=== PATIENT | female | born 1960 | race Caucasian/White ===

== ENCOUNTER 2021-10-02 12:08 | Emergency (ER) | payer BC, SELFPAY ==
[2021-10-02 12:28] VITALS: BP 116/78; PULSE 67; RESP 16; TEMP 36; O2SAT 97
--- NOTE | 2021-10-02 13:37 | W.ED.GENAD ---
Discharge Plan Disposition Patient Disposition: HOME Condition: Stable Discharge Details Clinical Impression: Martines's palsy Primary Care Provider: Pricilla Coon ED Provider: Calvin Dumont Home Meds and New Rx's Prescriptions: New prednisone 20 mg tablet 60 mg PO DAILY 5 Days Qty: 15 0RF valacyclovir 1 gram tablet 1,000 mg PO TID 7 Days Qty: 21 0RF doxycycline hyclate 100 mg capsule 100 mg PO BID 14 Days Qty: 28 0RF Continued multivitamin [Once Daily] 1 EACH tablet 1 tab PO DAILY cholecalciferol (vitamin D3) [Vitamin D3] 1,000 UNIT capsule 1 cap PO DAILY magnesium 200 MG tablet 1 tab PO DAILY Ocuvite with Lutein 1 TAB tablet 1 tab PO DAILY Biotin 5,000 MCG Tab.Subl 1 tab PO DAILY Cbd 1 cap PO HS cyanocobalamin-liver extract Tablet 1 tab PO DAILY Rx Instructions: unsure of dose clindamycin HCl 150 mg Capsule PO PRN PRN Rx Instructions: unsure of dose Discharge Instructions Instructions: Martines Palsy (ED) Additional Instructions: If you have any new or worsening symptoms you should return immediately to the emergency department for reassessment. Otherwise take medication as prescribed and we will contact you once we receive your tick and Lyme testing. Please be aware that the initial testing may be negative but it will be beneficial to continue and complete all antivirals and antibiotics. You have been placed on a follow-up list with [facility] internal medicine and please call their office tomorrow for arrangement of follow-up appointment and also to have your medical records transferred there. Referrals: [facility] [Provider Group] - 1 week Discharge Data Discharge Date/Time-TO BE ENTERED AT DEPARTURE: 10/02/21 14:16 Medical Decision Making Patient presenting to the emergency department for facial droop and eye irritation for the last 4 days. Patient was seen and the walk-in clinic and also saw community health coordinator today with suspicion of Martines's palsy. Physical exam is consistent with Martines's palsy to the right side of her face with forehead involvement. Exam is otherwise unremarkable and patient has no other neurological complaints or findings on exam. We will plan to start patient on steroids, antivirals, and antibiotics given that she has animals that have been in and out of the house and do occasionally have ticks. We will send tick and Lyme panel and plan to check CBC and CMP for any subtle findings that would indicate causation of Martines's palsy. Return and follow-up precautions were discussed. Patient does state that she does not have a primary care provider anymore due to prison and was requesting a local primary care provider. Did have patient placed upon care management list for arrangement of PCP. After discussion of diagnosis and plan of care patient has no further needs, questions, or concerns and states clear understanding to return to the emergency department for any worsening symptoms. HPI General Mode of arrival: ambulatory. Date/Time Provider Initiated Documentation: 10/02/21 12:49. Limitations to Documentation: no limitations. Information obtained by: patient and RN notes reviewed. History of Present Illness 61 year old F presents to the emergency department with the chief complaint of right sided facial droop, Quality is described as other (Denies pain or discomfort), and is localized to the face and right. Patient started experiencing this day(s) (4) and it has been constant. No relieving factors improve symptom(s), No exacerbating factors reported . Patient notes no other symptoms.. Patient did receive the following treatments prior to arrival, none Related Data Home Medications Medication Instructions Recorded Confirmed Biotin 1 tab PO DAILY 10/03/17 10/02/21 Cbd 1 cap PO HS 10/03/17 10/02/21 cholecalciferol (vitamin D3) 25 1 cap PO DAILY 10/03/17 10/02/21 mcg (1,000 unit) capsule (Vitamin D3) magnesium 200 mg tablet 1 tab PO DAILY 10/03/17 10/02/21 multivitamin (Once Daily tablet) 1 tab PO DAILY 10/03/17 10/02/21 vit A 300 mcg-C 200 mg-E 27 1 tab PO DAILY 10/03/17 10/02/21 mg-lutein 2 mg and minerals tablet (Ocuvite with Lutein) clindamycin HCl 150 mg capsule mg PO PRN PRN 10/02/21 cyanocobalamin-liver extract tablet 1 tab PO DAILY 10/02/21 10/02/21 doxycycline hyclate 100 mg capsule 100 mg PO BID 2 weeks #28 caps 10/02/21 prednisone 20 mg tablet 60 mg PO DAILY 5 days #15 tabs 10/02/21 valacyclovir 1 gram tablet 1,000 mg PO TID 1 week #21 tabs 10/02/21 Previous Rx's Medication Instructions Recorded doxycycline hyclate 100 mg capsule 100 mg PO BID 2 weeks #28 caps 10/02/21 prednisone 20 mg tablet 60 mg PO DAILY 5 days #15 tabs 10/02/21 valacyclovir 1 gram tablet 1,000 mg PO TID 1 week #21 tabs 10/02/21 Allergies Allergy/AdvReac Type Severity Reaction Status Date / Time azithromycin [From Zithromax] Allergy Severe Anaphylaxsi Unverified 10/02/21 12:45 s amoxicillin Allergy Intermediate Skin Rash Unverified 10/02/21 12:45 Penicillins Allergy Intermediate Skin Rash Unverified 10/02/21 12:45 General Stated Complaint: CVA/TIA COLT: 3 Review of Systems Constitutional Constitutional: Denies body ache(s), Denies chills, Denies fever(s), Denies headache(s) and Denies malaise Eyes Eyes: Reports blurry vision (Due to dry eyes), Denies change in vision, Reports dry eyes, Denies loss of vision and Reports photophobia ENT Ears, Nose, Mouth, and Throat: Denies dizziness, Denies headache(s) and Denies disequilibrium Cardiovascular Cardiovascular: Denies chest pain and Denies syncope Gastrointestinal Gastrointestinal: Reports nausea and Reports vomiting Neurologic Neurologic: Reports as per HPI, Denies abnormal speech, Denies dizziness, Denies syncope, Denies headache(s), Denies lack of coordination, Denies localized weakness, Denies loss of vision, Denies other visual disturbances, Denies sensory deficit, Denies paresthesias and Denies disequilibrium PFSH All Active Problems (Updated 10/05/21 @ 16:30 by Calvin Dumont NP) Amy-Danlos syndrome (Acute) Martines's palsy (Acute) Social History Smoking/Tobacco Use Status: Never Smoking risk assessment performed?: Yes Substance use type: does not use Do you feel safe at home: Yes Do you feel safe in your relationship?: Yes Exam Const General: cooperative, healthy appearing, no acute distress and well groomed Orientation: alert, awake and oriented x3 HENMT Head: normal to inspection Ears: hearing grossly normal bilaterally and TM's normal bilaterally Mouth: oral mucosae normal and moist mucous membranes Throat: posterior oropharynx normal Eyes Visual [place]: normal visual [place] by confrontation Alignment and Position: alignment normal Periorbital: periorbital findings normal Eyelids: eyelid abnormality right upper eyelid and right lower eyelid Sclera: sclerae normal Cornea: corneas normal Pupils: PERRL EOM: EOM intact bilaterally Neck Neck: normal visual inspection, full ROM, no lymphadenopathy and no meningeal signs Resp Effort & Inspection: normal respiratory effort and able to speak in complete sentences Auscultation: clear to auscultation bilaterally Cardio Rate: regular rate Rhythm: regular rhythm Heart Sounds: S1 normal and S2 normal Neuro General: patient alert, patient awake, patient oriented x3, gait normal, tone normal, moves all extremities and not confused Cranial Nerves: PERRL, EOM intact bilaterally, no nystagmus, tongue midline, gag reflex normal, hearing normal, able to rotate head bilaterally, able to elevate shoulders bilaterally and individual cranial nerve findings VII: abnormal (Paralysis with intact sensation) Cognition: normal cognition Speech: speech normal Motor: muscle tone normal throughout, strength 5/5 throughout, no pronator drift, no movement abnormalities noted and no fasciculations Sensory Exam: no sensory deficits noted Coordination: [id number] test normal, Romberg test normal, Does not sway with eyes open, rapid alternating movement UE normal and rapid alternating movement LE normal Course Vital Signs Vital signs: Vital Signs Temperature 36 C L 10/02/21 12:28 Pulse 67 10/02/21 12:28 Respiratory Rate 16 10/02/21 12:28 Blood Pressure 116/78 10/02/21 12:28 Pulse Oximetry 97 10/02/21 12:28 Temperature 36 C L 10/02/21 12:28 Temperature Source Skin 10/02/21 12:28 Pulse 67 10/02/21 12:28 Respiratory Rate 16 10/02/21 12:28 Blood Pressure 116/78 10/02/21 12:28 Blood Pressure Position Sitting 10/02/21 12:28 Pulse Oximetry 97 10/02/21 12:28 Oxygen Delivery Method Room Air 10/02/21 12:28 Oxygen Flow Rate 0 10/02/21 12:28 Pain Level 0 10/02/21 12:28
[2021-10-02 13:45] VITALS: RESP 16
--- NOTE | 2021-10-02 13:59 | NUR.NOTE ---
Nursing Note: Referral given to Care Management needs PCP, establish care, [place] Palsy, within 1 week. Lillian Roger
[2021-10-02 14:17] VITALS: PULSE 88; RESP 16; O2SAT 99
[2021-10-02 14:20] LABS: Abs Immature Grans 0.02 10^3/uL (0.0-0.06); Absolute Basophil Count 0.04 10^3/uL (0.0-0.2); Absolute Eosinophil Count 0.16 10^3/uL (0.0-0.7); Absolute Lymphocyte Count 2.34 10^3/uL (1.2-3.4); Absolute Monocyte Count 0.63 10^3/uL (0.1-0.8); Absolute Neutrophil Count 4.19 10^3/uL (1.2-6.7); Basophils % 0.5; Eosinophils % 2.2; HCT 46.5 % (36.0-46.0); Immature Grans % 0.3; Lymphocytes % 31.7; MCHC 32.3 % (32.0-36.0); MCV 90 fL (80-95); MPV 9.9 fL (8.0-11.0); Monocytes % 8.5; Neutrophils % 56.8; Platelet Count 251 10^3/uL (130-400); RBC 5.18 10^6/uL (3.93-5.22); RDW 13.8 % (11.7-14.6); RDW-SD 45.8 fL; WBC 7.38 10^3/uL (4.4-10.8)
--- NOTE | 2021-10-02 14:20 | NUR.NOTE ---
Nursing Note: pt with mild right side face drop - no weakness in arms. 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 no leg weakness. no difficulty standing or walking. No confusion, no speech impairment. Per ORE CRUSHING DUST COLLECTOR Jaiden, pt is not at high risk for CVA and presents with [place] Palsy.
[2021-10-02 14:36] LABS: ALT 29 U/L (14-59); AST 14 U/L (15-37); Albumin 4.2 g/dL (3.4-5.0); Alkaline Phosphatase 113 U/L (46-116); Anion Gap 8.6 mmol/L (3-11); BUN 12 mg/dL (7-18); Bilirubin, Total 0.5 mg/dL (0.2-1.0); CO2 27.4 mmol/L (21.0-32.0); CREATININE 0.8 mg/dL (0.55-1.02); Calcium 9.5 mg/dL (8.5-10.1); Chloride 106 mmol/L (98-107); Glucose 90 mg/dL (74-106); Potassium 3.9 mmol/L (3.5-5.1); Sodium 142 mmol/L (136-145); Total Protein 7.6 g/dL (6.4-8.2)
[2021-10-03 11:23] LABS: Lyme Ab w Rflx to Lyme Confirm Negative (Negative)
[2021-10-04 05:30] LABS: Anaplasma phagocytophilum Negative (Negative); B. miyamotoi PCR Negative (Negative); Babesia divergens/MO-1 Negative (Negative); Babesia duncani Negative (Negative); Babesia microti Negative (Negative); Ehrlichia chaffeensis Negative (Negative); Ehrlichia ewingii/canis Negative (Negative); Ehrlichia muris eauclairensis Negative (Negative)
--- NOTE | 2021-10-10 09:45 | NUR.NOTE ---
Nursing Note: Accessed patient chart for results of tick and lyme panel. Per Dr Mane the results of all 7 tests were negative. Patient was called back and given the results. Lillian Roger
== END 2021-10-02 14:16 | disposition home or self-care (01) ==
PROVIDERS: Emergency Provider Nurse Practitioner Family; PCP Internal Medicine
DX: G51.0 Bell's palsy (principal)
CPT/HCPCS: 36415; 80053; 87798; 99283; 85025; 86618

== ENCOUNTER 2022-01-25 18:03 | Outpatient (REF) | payer BC, SELFPAY ==
[2022-01-25 15:54] LABS: HCT 43.1 % (36.0-46.0); HGB 14.2 g/dL (11.2-15.7); MCH 28.9 pg (27.0-33.0); MCHC 32.9 % (32.0-36.0); MCV 88 fL (80-95); MPV 10.3 fL (8.0-11.0); Platelet Count 313 10^3/uL (130-400); RBC 4.91 10^6/uL (3.93-5.22); RDW 13.5 % (11.7-14.6); WBC 6.57 10^3/uL (4.4-10.8)
[2022-01-25 16:48] LABS: ALT 34 U/L (14-59); AST 17 U/L (15-37); Albumin 3.8 g/dL (3.4-5.0); Alkaline Phosphatase 104 U/L (46-116); Anion Gap 8.6 mmol/L (3-11); BUN 11 mg/dL (7-18); Bilirubin, Total 0.4 mg/dL (0.2-1.0); CO2 28.4 mmol/L (21.0-32.0); CREATININE 0.8 mg/dL (0.55-1.02); Calcium 9.3 mg/dL (8.5-10.1); Calculated LDL 183 mg/dL (<100); Chloride 105 mmol/L (98-107); Cholesterol 265 mg/dL (<200); Glucose 99 mg/dL (74-106); HDL Cholesterol 60 mg/dL (40-60); Potassium 4.6 mmol/L (3.5-5.1); Sodium 142 mmol/L (136-145); TSH (W/Ref FT4) 3.32 uIU/mL (0.36-3.74); Total Protein 6.8 g/dL (6.4-8.2); Triglyceride 112 mg/dL (<150)
== END 2022-01-25 18:04 | disposition home or self-care (01) ==
LOC: NCHCN 18:03
PROVIDERS: PCP Internal Medicine; Visit Provider Nurse Practitioner Family
DX: Z00.00 Encounter for general adult medical examination without abnormal findings (principal); E78.5 Hyperlipidemia, unspecified; R68.83 Chills (without fever); R53.83 Other fatigue
CPT/HCPCS: 80053; 80061; 85027; 84443

== ENCOUNTER 2022-08-10 17:38 | Emergency (ER) | payer BC, SELFPAY ==
[2022-08-10 17:42] VITALS: BP 147/78; PULSE 75; RESP 18; TEMP 36.3; O2SAT 100
--- NOTE | 2022-08-10 17:45 | DI.RAD_ITS ---
Exam(s) XR TIB/FIB LT EXAM: XR TIB/FIB LT CLINICAL HISTORY: distal fibular pain. TECHNIQUE: 2D digital imaging was performed. COMPARISON: No exams were available for comparison FINDINGS: Two views: No evidence of acute fracture. No radiopaque foreign body. Mild soft tissue swelling. There is a left knee prosthesis which appears to be in satisfactory position. No obvious loosening. IMPRESSION: There is soft tissue swelling in the lower leg region. No acute osseous findings. Left knee prosthe sis noted. DATA REPOSITORY: RADIATION DOSE DELIVERED:
--- NOTE | 2022-08-10 17:46 | W.ED.GENAD ---
Discharge Plan Disposition Patient Disposition: Home Condition: Good Discharge Details Clinical Impression: Lower extremity pain, lateral Primary Care Provider: Lucy Davey ED Provider: Jean Carlos Martinez Home Meds and New Rx's Prescriptions: Continued multivitamin [Once Daily] 1 EACH tablet 1 tab PO DAILY cholecalciferol (vitamin D3) [Vitamin D3] 1,000 UNIT capsule 1 cap PO DAILY magnesium 200 MG tablet 1 tab PO DAILY Ocuvite with Lutein 1 TAB tablet 1 tab PO DAILY Biotin 5,000 MCG Tab.Subl 1 tab PO DAILY Cbd 1 cap PO HS cyanocobalamin-liver extract Tablet 1 tab PO DAILY Rx Instructions: unsure of dose clindamycin HCl 150 mg Capsule PO PRN PRN Rx Instructions: unsure of dose Discharge Instructions Additional Instructions: You were seen for left lateral lower extremity pain with an associated lump. You are tender in this area and it moves with flexion and extension of your ankle suggesting related to the tendons. You do not have calf tenderness or generalized leg pain or swelling and this is unlikely to be blood clot related. Would take ibuprofen 600 mg 3 times a day with food, keep the leg elevated as much as possible, ice on and off over the weekend. Follow-up with primary care next week if not improving. Return to the ED for fever, chest pain, shortness of breath, worsening/increasing pain, redness, other concerns. Medical Decision Making Patient presenting with left lower lateral leg pain with nodular-like mass appreciated. It is mildly tender. It is mobile and moves beneath my fingers with flexion and extension of her ankle. Suspect tendon related inflammation. She has no calf tenderness nor asymmetric swelling. Pulses are intact. I do not suspect this to be related to DVT as it is fairly focal and localized. Patient given ibuprofen. X-ray of tib-fib obtained just to be sure of no bony abnormality. Per my read and preliminary radiology read tib-fib films are unremarkable. No acute fracture/dislocation or osseous abnormality. 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 Have her use ibuprofen 3 times a day over the weekend. Ice on and off. Follow-up with primary care next week if it is not improving. Return precautions provided. HPI General Mode of arrival: ambulatory. Date/Time Provider Initiated Documentation: 08/10/22 17:46. Limitations to Documentation: no limitations. Information obtained by: patient. HPI Narrative: Patient presents to ED with left lateral pain just above her ankle. She denies any injury. She describes the pain as throbbing. She feels a small lump in the area. She denies any fever, chest pain, shortness of breath, leg swelling. Pain is pretty much localized to that one area. No prior history of DVT or clots. 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 Related Data Home Medications Medication Instructions Recorded Confirmed Biotin 1 tab PO DAILY 10/03/17 08/10/22 Cbd 1 cap PO HS 10/03/17 08/10/22 cholecalciferol (vitamin D3) 25 1 cap PO DAILY 10/03/17 08/10/22 mcg (1,000 unit) capsule (Vitamin D3) magnesium 200 mg tablet 1 tab PO DAILY 10/03/17 08/10/22 multivitamin (Once Daily tablet) 1 tab PO DAILY 10/03/17 10/02/21 vit A 300 mcg-C 200 mg-E 27 1 tab PO DAILY 10/03/17 08/10/22 mg-lutein 2 mg and minerals tablet (Ocuvite with Lutein) clindamycin HCl 150 mg capsule mg PO PRN PRN 10/02/21 cyanocobalamin-liver extract tablet 1 tab PO DAILY 10/02/21 10/02/21 Allergies Allergy/AdvReac Type Severity Reaction Status Date / Time azithromycin [From Zithromax] Allergy Severe Anaphylaxsi Unverified 10/02/21 12:45 s amoxicillin Allergy Intermediate Skin Rash Unverified 10/02/21 12:45 Penicillins Allergy Intermediate Skin Rash Unverified 10/02/21 12:45 General Stated Complaint: Vascular COLT: 4 Review of Systems Narrative: per HPI PFSH All Active Problems (Updated 08/10/22 @ 19:13 by Jean Carlos Martinez MD) Lower extremity pain, lateral (Acute) Chronic left hip pain (Acute) Morbid obesity (Acute) Chills (without fever) (Acute) Fatigue (Acute) Medical History Alopecia areata Amy-Danlos syndrome Hyperlipidemia Lichen sclerosus et atrophicus Melanoma Migraine YAZAN (obstructive sleep apnea) Osteoarthritis of hips, bilateral Surgical History History of total knee replacement Social History Smoking/Tobacco Use Status: Never Smoking risk assessment performed?: Yes Substance use type: does not use Do you feel safe at home: Yes Do you feel safe in your relationship?: Yes Exam Narrative Exam Narrative: Const: Obese female in NAD. HEENT: NC/AT. Normal facial exam. Eyes: Normal conjunctiva and sclera. Neck: Supple. Trachea midline. Lungs: Normal respiratory effort. Cor: RRR. Good DP/PT pulses. Neuro: A+O x 3. Normal speech, mentation, gait. Cranial nerves II - XII grossly intact. No gross motor or sensory deficit. Ext: No C/C/E. No calf tenderness. Focal tenderness with palpable nodule like mass just above and behind the lateral malleolus. This moves with flexion and extension at the ankle and feels related to a tendon. Pain is made worse by flexion/extension Skin: Warm and dry without erythema. Course Vital Signs Vital signs: Vital Signs Temperature 97.4 F L 08/10/22 17:42 Pulse 75 08/10/22 17:42 Respiratory Rate 18 08/10/22 17:42 Blood Pressure 147/78 H 08/10/22 17:42 Pulse Oximetry 100 08/10/22 17:42 Temperature 97.4 F L 08/10/22 17:42 Temperature Source Tympanic 08/10/22 17:42 Pulse 75 08/10/22 17:42 Respiratory Rate 18 08/10/22 17:42 Respiratory Effort Normal 08/10/22 17:44 Blood Pressure 147/78 H 08/10/22 17:42 Pulse Oximetry 100 08/10/22 17:42 Pain Level 6 08/10/22 17:42 PAWSS Have you Been Recently Intoxicated or Drunk Within the Last 30 days?: No Have you Ever Experienced Previous Episodes of Alcohol Withdrawal?: No Have you ever Experienced Withdrawal Seizures?: No Have you ever Experienced Delirium Tremens(DT)s?: No Have you ever undergone Alcohol Rehabilitation Treatment (i.e, inpt ot outpatient treatment programs)?: No Have you ever Experienced Blackouts?: No Have you ever Combined Alcohol with other Downers within the last 90 days?: No Have you ever Combined Alcohol with any other Substance of Abuse during the last 90 days?: No Result: 0
[2022-08-10] MEDS: Ibuprofen 600 MG TAB PO (18:07)
--- NOTE | 2022-08-10 18:57 | DI.VRAD_ITS ---
PROCEDURE INFORMATION: Exam: XR Left Tibia and Fibula Exam date and time: 08/10/2022 6:42 PM Age: 61 years old Clinical indication: Pain; Lower leg; Bilateral; Prior surgery; Surgery date: 6+ months; Surgery type: Tka; Additional info: Pain no injury TECHNIQUE: Imaging protocol: Radiologic exam of the left tibia and fibula. Views: 2 views. COMPARISON: No relevant prior studies available. FINDINGS: Bones/joints: Left knee prosthesis is in place. Osseous alignment is normal. No acute fracture. Soft tissues: Soft tissue swelling of the left lower leg noted IMPRESSION: Soft tissue swelling of the left lower leg. Left knee prosthesis No significant osseous abnormality. Dictated and Authenticated by: Talib Martinez MD. Ordering:CORRINA Evangelista MD
[2022-08-10 19:39] VITALS: BP 118/83; PULSE 53; RESP 16; TEMP 36.4; O2SAT 99
== END 2022-08-10 19:41 | disposition home or self-care (01) ==
PROVIDERS: Emergency Provider Emergency Medicine; PCP Nurse Practitioner Family
DX: M79.662 Pain in left lower leg (principal)
CPT/HCPCS: 99283; 73590

== ENCOUNTER 2022-09-27 06:55 | Day surgery (SDC) | payer BC, SELFPAY ==
--- NOTE | 2022-09-26 19:35 | W.PM.DSUDISC ---
Date of service: 09/27/22 Time of Service: 08:41 Discharge Plan Disposition Patient Disposition: Home Condition: Good Discharge Details Reason For Visit: Screening colonoscopy Attending Provider: Jase Santillan Primary Care Provider: Lucy Davey Home Meds and New Rx's Prescriptions: Continued multivitamin [Once Daily] 1 EACH tablet 1 tab PO DAILY cholecalciferol (vitamin D3) [Vitamin D3] 1,000 UNIT capsule 1 cap PO DAILY magnesium 200 MG tablet 1 tab PO DAILY Ocuvite with Lutein 1 TAB tablet 1 tab PO DAILY Biotin 5,000 MCG Tab.Subl 1 tab PO DAILY Cbd 1 cap PO HS cyanocobalamin-liver extract Tablet 1 tab PO DAILY Rx Instructions: unsure of dose Discontinued polyethylene glycol 3350 17 gram/dose powder 238 g PO ONCE Qty: 238 0RF Rx Instructions: take per colonoscopy instructions bisacodyl [Dulcolax (bisacodyl)] 5 mg tablet,delayed release (DR/EC) 5 mg PO ONCE Qty: 4 0RF Rx Instructions: take per colonoscopy instructions No Action estradiol 1 mg/gram (0.1 %) Gel In Packet 1 packet topical DIRECTED Discharge Instructions Instructions: Diverticulosis Diet (GEN), Diverticulosis (GEN) Additional Instructions: Janis, we were able to complete your colonoscopy today without any difficulty. You have some sigmoid diverticulosis. These are weak spots in the wall of the large intestine. Seen in some patients they can cause pain usually on the left lower side, sometimes across the lower portion of the abdomen. This is known as diverticulitis, and is often times treated with antibiotics. In many patients, the diverticulosis is asymptomatic. I have attached some information here regarding general treatment of diverticular disease. Otherwise, I did not see any signs of polyps or tumors. Based on your family history, you should consider screening colonoscopies every 5 years to reduce your chances of colon cancer. 1. If tolerated, consume a soft, low fiber diet for 1-2 days. [address] Do not drive, drink alcohol, operate machinery, make critical decisions, or do activities that require coordination or balance for 24 hours. 3. Because air was put into your colon during the procedure, expelling air from your rectum (passing gas or farting) is normal. 4. You may not have a bowel movement for 1-3 days because of the colonoscopy prep. This is normal. 5. Go directly to the emergency room if you notice any of the following: Develop chills (warm to touch), or if you have a thermometer and your temperature is above 101 Difficulty breathing or difficultly swallowing Persistent vomiting Severe abdominal pain, other than gas cramps Severe chest pain Black, tarry stools Any bleeding ? exceeding one tablespoon 6. Call your physician if the site where your intravenous was started becomes red, swollen, painful, and warm to touch. 7. Your physician has reviewed your pre-procedure medications. Please continue to take those medications as previously ordered. You will be given specific information/education regarding any changes to your medications before leaving. Activity:: Activity as Tolerated Diet:: As Tolerated Discharge Orders Discharge Orders: Discharge Order (Routine); Ordered 09/26/22 Ordered By: Jase Santillan DS: Diagnosis Discharge Diagnosis (1) Screen for colon cancer: Status: Acute Asessment and Plan: Negative screening colonoscopy; based on family history of multiple second-degree relatives with colon cancer, she should undergo screening colonoscopy every 5 years
--- NOTE | 2022-09-26 19:36 | W.COLOREPORT ---
Date of service: 09/27/22 Time of Service: 08:38 Colonoscopy Report Date of procedure: 09/27/22 Pre-op diagnosis general: Screening colonoscopy Post-op diagnosis procedure note: other (Diverticulosis) Procedure: Colonoscopy Surgeon: Jase Santillan Anesthesia Type: General:No Airway Estimated blood loss (mL): 0 Pathology: none sent Complications: None Disposition: same day Indications: Janis is 62 years old and she is undergoing her second screening colonoscopy. She has a newly discovered family history of multiple second-degree relatives with colon cancer. Therefore, she should consider screening colonoscopy every 5 years. Prep: Miralax/Dulcolax Procedure Start Time: 08:12 Procedure End Time: 08:29 Retraction Time: 10 Findings: Sigmoid diverticulosis Procedure Description: After the induction of monitored anesthetic care, and with the patient in left lateral decubitus position, I began by performing an external anorectal exam.? Perineum and skin were normal, as was the anal verge.? There is an external hemorrhoid.? Next, I performed a digital rectal exam.? I did not appreciate any abnormal findings.? Next, I advanced a colonoscope into the rectal vault.? I performed retroflexion.? This was normal.? Using insufflation, I then advanced the colonoscope beyond the rectal folds and into the sigmoid colon before advancing towards the cecum.? The quality of the prep was outstanding.? The scope was noted to be in the cecum by identification of the ileocecal valve and appendiceal orifice.? I then began withdrawing the colonoscope using repeated irrigation as necessary for full evaluation of the colonic mucosa. There is some sigmoid diverticulosis. ?Once the scope was withdrawn to the level of the rectum, great care was taken to examine portions of the rectal folds.? Finally, the scope was withdrawn and the patient was brought to the same-day surgery recovery unit as the anesthetic wore off. ?The findings and instructions were shared with the patient prior to discharge.
[2022-09-27 07:15] VITALS: BP 124/82; PULSE 67; RESP 16; TEMP 36.2; O2SAT 98
--- NOTE | 2022-09-27 07:36 | W.ANESPRE ---
General Info Date of Service Date Performed: 09/27/22 Height: 5 ft 7 in Weight: 131.8 kg Body Mass Index (BMI): 45.5 Surgical Procedure: Operation Date: 09/27/22 08:20 Proposed Procedure Side Surgeon fuentes Santillan MD Meds Allergies and Home Medications Allergies Allergy/AdvReac Type Severity Reaction Status Date / Time azithromycin [From Zithromax] Allergy Severe Anaphylaxsi Unverified 09/27/22 07:12 s amoxicillin Allergy Intermediate Skin Rash Unverified 09/27/22 07:12 Penicillins Allergy Intermediate Skin Rash Unverified 09/27/22 07:12 Home Medication Medication Instructions Recorded Biotin 1 tab PO DAILY 10/03/17 Cbd 1 cap PO HS 10/03/17 cholecalciferol (vitamin D3) 25 1 cap PO DAILY 10/03/17 mcg (1,000 unit) capsule (Vitamin D3) magnesium 200 mg tablet 1 tab PO DAILY 10/03/17 multivitamin (Once Daily tablet) 1 tab PO DAILY 10/03/17 vit A 300 mcg-C 200 mg-E 27 1 tab PO DAILY 10/03/17 mg-lutein 2 mg and minerals tablet (Ocuvite with Lutein) cyanocobalamin-liver extract tablet 1 tab PO DAILY 10/02/21 estradiol 1 mg/gram (0.1 %) 1 packet topical DIRECTED 09/27/22 transdermal gel packet Current Visit Medications: Current Medications Generic Name Dose Route Start Last Admin Trade Name Freq PRN Reason Stop Dose Admin Hyoscyamine Sulfate 0.125 mg 09/26/22 19:38 Hyoscyamine 0.125 Mg Sl/Oral/Chew SL 10/26/22 19:37 DIRECTED PRN Ringer's Solution 1,000 mls @ 80 mls/hr 09/27/22 06:00 IV 10/26/22 23:59 INF[facility]ION [facility] IV Miscellaneous Supplies 1 each 09/27/22 06:00 Iv Access IV 10/26/22 23:59 DIRECTED [facility] Ondansetron HCl 4 mg 09/26/22 19:38 Ondansetron 4 Mg/2 Ml Vial IVP 10/26/22 19:37 Q4H PRN PRN Nausea / Vomiting Sodium Chloride 0 ml 09/27/22 06:00 Normal Saline Flush 10 Ml Syr IV 10/26/22 23:59 PRN PRN Sodium Chloride 0 ml 09/27/22 06:00 Normal Saline 10 Ml Vial IJ 10/26/22 23:59 DIRECTED PRN Sterile Water 0 ml 09/27/22 06:00 Water,Injection,Sterile 10 Ml Vial IJ 10/26/22 23:59 DIRECTED PRN PFSH Active Problems Active Problems: Problem Status Onset Code Fatigue R53.83 Chills (without fever) R68.83 Morbid obesity E66.01 Chronic left hip pain M25.552, G89.29 Screen for colon cancer Z12.11 Medical History Medical History (Updated 09/27/22 @ 07:30 by Janet Rg RN) Alopecia areata Amy-Danlos syndrome Hyperlipidemia Lichen sclerosus et atrophicus Melanoma 7 lymph nodes removed at same time as melanoma Migraine YAZAN (obstructive sleep apnea) Osteoarthritis of hips, bilateral Medical History Comments:: Per pt. states she doesnt need as much general anesthesia, states it take her a long time to come out of it Surgical History Surgical History (Updated 09/27/22 @ 07:31 by Janet Rg RN) H/O lymph node excision L side, armpit-traced with barium History of total knee replacement Bilateral Hx of tubal ligation Tobacco Smoking/Tobacco Use Status: Never Alcohol Alcohol Intake: current Alcohol intake frequency: 0-2 drinks per day Substance Use Substance use type: does not use Details: alcohol t-2, one hard kombucha Vital Signs and Lab Results Vital Signs Most Recent Vital Signs in EMR: Most Recent Vital Signs Temp Pulse Resp BP Pulse Ox 36.2 C L 67 16 124/82 98 09/27/22 07:15 09/27/22 07:15 09/27/22 07:15 09/27/22 07:15 09/27/22 07:15 Lab Results Blood Type / Crossmatch: No Data to Display Complete Blood Count: No Data to Display Complete Metabolic Panel: No Data to Display Liver Function Panel: No Data to Display Coagulation Panel: No Data to Display Cardiac Panel: No Data to Display Arterial Blood Gas: No Data to Display Venous Blood Gas: No Data to Display Pancreas Panel: No Data to Display Thyroid Panel: No Data to Display Infectious Disease: No Data to Display Blood Cultures: No Data to Display Toxicology Panel: No Data to Display Anesthesia Assessment and Plan Anesthesia History Personal History: No History of Anesthesia Complications and Delayed Emergence Family History: No Family History of Anesthesia Complications Exercise Tolerance Exercise Tolerance: Metabolic Equivalents>4 Pertinent Negatives Pertinent Negatives: No Symptoms of GERD Cardiac & Pulmonary Exam Cardiac Exam: Normal S1/S2 Heart Sounds Pulmonary Exam: Clear Bilateral Breath Sounds Implantable Cardiac Device Does patient have a Pacemaker or an ICD?: No Airway Exam Known Difficult Airway: No Mallampati Class: 3 Mouth Opening: Normal (> 3cm) Thyromental Distance: Greater than 3 cm Neck Range of Motion: Full ROM Neck Circumference: Normal Teeth Condition: Normal Dentition ASA Classification ASA Score: ASA 2 Emergency Case?: No NPO Status NPO Status: NPO Clears >2 hours, Solids >8 hours Anesthesia Plan Resuscitation Status: Full Code Anesthesia Technique: MAC Anesthesia Airway Planned: Natural Airway Monitors Used: Standard Monitors
[2022-09-27 07:37] VITALS: BMI 45.5
[2022-09-27] MEDS: Lactated Ringers 1,000 ML 80 ML IV (07:46)
[2022-09-27 08:33] VITALS: BP 112/65; PULSE 66; RESP 18; TEMP 36.4; O2SAT 95
[2022-09-27 09:00] VITALS: BP 152/85; PULSE 65; RESP 18; TEMP 36.6; O2SAT 98
--- NOTE | 2022-09-27 09:24 | W.ANESPOSTOP ---
Postoperative Evaluation Date, Time and Location Date Performed: 09/27/22 Time Performed: :24 Patient Location: Day Surgery Unit Vital Signs Most Recent Imported Vital Signs: Most Recent Vital Signs Temp Pulse Resp BP Pulse Ox 36.6 C 65 18 152/85 H 98 09/27/22 09:00 09/27/22 09:00 09/27/22 09:00 09/27/22 09:00 09/27/22 09:00 Pain Score Most Recent Pain Score: Most Recent Pain Score Pain Level 0 09/27/22 09:00 Assessment Mental Status: Awake (Alert & Oriented to Patient Baseline) Airway and Respiratory Function: Patent airway with normal (patient baseline) respiratory exam Cardiovascular Function: Hemodynamically Stable Hydration Status: Adequately Hydrated Nausea & Vomiting: No Nausea or Vomiting Pain: Pt. Denies Any Pain Peripheral Nerve Block: Patient did not receive a nerve block
== END 2022-09-27 06:56 | disposition home or self-care (01) ==
PROVIDERS: PCP Nurse Practitioner Family; Visit Provider Surgery
PROC: 0DJD8ZZ Inspection of Lower Intestinal Tract, Via Natural or Artificial Opening Endoscopic (ICD-10-PCS; CPT 45378; principal; 2022-09-27 08:15)
DX: Z12.11 Encounter for screening for malignant neoplasm of colon (principal); Z80.0 Family history of malignant neoplasm of digestive organs; K57.30 Diverticulosis of large intestine without perforation or abscess without bleeding
CPT/HCPCS: 45378

== ENCOUNTER 2023-06-07 14:38 | Outpatient (REF) | payer BC, SELFPAY ==
[2023-06-07 19:46] LABS: Hemoglobin A1C 5.6 % (<5.7)
[2023-06-07 20:05] LABS: ALT 24 U/L (14-59); AST 15 U/L (15-37); Albumin 4.1 g/dL (3.4-5.0); Alkaline Phosphatase 92 U/L (46-116); Anion Gap 7.1 mmol/L (3-11); BUN 11 mg/dL (7-18); Bilirubin, Total 0.6 mg/dL (0.2-1.0); CO2 27.9 mmol/L (21.0-32.0); CREATININE 0.9 mg/dL (0.55-1.02); Calcium 9.3 mg/dL (8.5-10.1); Calculated LDL 170 mg/dL (<100); Chloride 105 mmol/L (98-107); Cholesterol 264 mg/dL (<200); Estimated GFR 72.73 (mL/min/1.73m2); Glucose 109 mg/dL (74-106); HDL Cholesterol 78 mg/dL (40-60); Sodium 140 mmol/L (136-145); TSH (W/Ref FT4) 3.26 uIU/mL (0.36-3.74); Total Protein 7.5 g/dL (6.4-8.2); Triglyceride 81 mg/dL (<150)
[2023-06-10 13:26] LABS: FREE T4 1.06 ng/dL (0.76-1.46)
== END 2023-06-07 14:39 | disposition home or self-care (01) ==
LOC: NCHCN 14:38
PROVIDERS: PCP Nurse Practitioner Family; Visit Provider Nurse Practitioner Family
DX: R53.83 Other fatigue (principal)
CPT/HCPCS: 80053; 80061; 83036; 84439; 84443

== ENCOUNTER → 2023-12-18 01:54 | Outpatient (CLI) | payer BC, SELFPAY ==
--- NOTE | 2023-12-18 | DI.MAMMO_ITS ---
Exam(s) MAMMO SCREENING EXAM: MAMMO SCREENING CLINICAL HISTORY: SCREENING, Z12.31. TECHNIQUE: Bilateral full field digital CC and MLO mammographic images were obtained with 3D tomosyn thesis and utilizing computer aided detection (CAD). COMPARISON: Prior outside mammograms dating back to 2004 were reviewed, most recent being April 13.. FINDINGS: There has been no significant change in the appearance and distribution of the fibroglandular tissue. No new left breast findings. In the right breast there is an asymmetric density evident anteriorly, medial of center and unchanged since 2004. There are no malignant-appearing microcalcification groups in this region nor elsewhere in either miguel ast. There is no significant architectural distortion nor skin thickening-retraction. IMPRESSION: No radiographic evidence of malignancy. BI-RADS Category 2 - Benign Findings Breast Density - Category B - Scattered areas of fibroglandular density Breast density Category C or D implies that the patient has dense breast tissue. Dense breast tissue can make it harder to find cancer on a mammogram. Dense breast tissue is also associated with an incr eased risk of breast cancer. This information about the result of the mammogram report was provided to the patient to raise their awareness. Use this report when you speak with the patient about their risks for breast cancer, which includes their family history. At that time, you may recommend additional screening tests (Ultrasoun d or MRI) as these tests may add significant information. A negative radiographic report should not delay biopsy if a dominant or clinically suspicious mass is present. Up to ten percent of cancers are not identified on mammography. A negative report may reinforce clinical impression. Adenosis and dense breasts may obscure an underlying neoplasm. False positive reports average 6 to 10%. Patient will receive a letter notifying them of these results.
== END ==
PROVIDERS: PCP Nurse Practitioner Family; Visit Provider Nurse Practitioner Family
DX: Z12.31 Encounter for screening mammogram for malignant neoplasm of breast (principal)
CPT/HCPCS: 77063; 77067

== ENCOUNTER 2024-06-29 15:16 | Outpatient (REF) | payer BC, SELFPAY ==
[2024-06-29 19:33] LABS: ALT 21 U/L (14-59); AST 13 U/L (15-37); Albumin 4.2 g/dL (3.4-5.0); Alkaline Phosphatase 112 U/L (46-116); Anion Gap 6.8 mmol/L (3-11); BUN 13 mg/dL (7-18); Bilirubin, Total 0.54 mg/dL (0.2-1.0); CO2 30.2 mmol/L (21.0-32.0); CREATININE 0.8 mg/dL (0.55-1.02); Calcium 9.6 mg/dL (8.5-10.1); Calculated LDL 191 mg/dL (<100); Chloride 106 mmol/L (98-107); Cholesterol 284 mg/dL (<200); Estimated GFR 83.26 (mL/min/1.73m2); Glucose 92 mg/dL (74-106); HDL Cholesterol 73 mg/dL (40-60); Potassium 4.4 mmol/L (3.5-5.1); Sodium 143 mmol/L (136-145); Total Protein 7.1 g/dL (6.4-8.2); Triglyceride 100 mg/dL (<150)
== END 2024-06-29 15:17 | disposition home or self-care (01) ==
LOC: NCHCN 15:16
PROVIDERS: PCP Nurse Practitioner Family; Visit Provider Nurse Practitioner Family
DX: Z00.00 Encounter for general adult medical examination without abnormal findings (principal)
CPT/HCPCS: 80053; 80061

== ENCOUNTER 2024-10-01 02:37 | Outpatient (CLI) | payer BC, SELFPAY ==
--- NOTE | 2024-10-01 | DI.DEXA_ITS ---
Exam(s) XR DEXA BONE DENSITY W/WO LAST EXAM: XR DEXA BONE DENSITY W/WO LAST CLINICAL HISTORY: Asymptomatic menopausal state, Z78.0 TECHNIQUE: COMPARISON: CR LUMBAR SPINE AP, LAT from 02/20/2012 FINDINGS: Lateral Spine Image: Unremarkable. No compression deformities identified. Left hip: Total T-Score: 0.4 Total Z-Score: 1.5 T- and Z-scores: Within normal limits. Lumbar Spine: Total T-Score: 2.2 Total Z-Score: 3.9 T- and Z-scores: Within normal limits. IMPRESSION: No evidence of osteoporosis.
== END 2024-10-01 02:57 ==
LOC: DI 02:37
PROVIDERS: PCP Nurse Practitioner Family; Visit Provider Nurse Practitioner Family
DX: Z13.820 Encounter for screening for osteoporosis (principal); Z78.0 Asymptomatic menopausal state
CPT/HCPCS: 77080

== ENCOUNTER 2024-10-14 09:28 | Outpatient (REF) | payer BC, SELFPAY ==
[2024-10-14 16:18] LABS: Calculated LDL 168 mg/dL (<100); Cholesterol 251 mg/dL (<200); HDL Cholesterol 68 mg/dL (>or=50); Hemoglobin A1C 5.9 % (<5.7); Triglyceride 79 mg/dL (<150)
== END 2024-10-14 09:29 | disposition home or self-care (01) ==
LOC: NCHCN 09:28
PROVIDERS: PCP Nurse Practitioner Family; Visit Provider Nurse Practitioner Family
DX: E78.5 Hyperlipidemia, unspecified (principal); Z13.1 Encounter for screening for diabetes mellitus
CPT/HCPCS: 80061; 83036